=== PATIENT | female | born 1970 | race Caucasian/White ===

== ENCOUNTER → 2020-03-29 | Outpatient (CLI) | payer OTHER ==
[2020-04-02 11:07] LABS: HPV 16 Negative (Negative); HPV 18 Negative (Negative); HPV OTHER HR TYPES Negative (Negative)
== END | disposition home or self-care (01) ==
LOC: LAB SHORT 10:00 → LAB 10:00
PROVIDERS: Obstetrics & Gynecology
DX: Z01.419 Encounter for gynecological examination (general) (routine) without abnormal findings (principal)
CPT/HCPCS: 87624; G0123

== ENCOUNTER → 2021-08-06 | Outpatient (CLI) | payer OTHER ==
[2021-08-08 13:08] LABS: HPV 16 Negative (Negative); HPV 18 Negative (Negative); HPV OTHER HR TYPES Positive (Negative)
== END | disposition home or self-care (01) ==
LOC: LAB 13:30 → LAB SHORT 13:30
PROVIDERS: Obstetrics & Gynecology
DX: Z01.419 Encounter for gynecological examination (general) (routine) without abnormal findings (principal)
CPT/HCPCS: 87624; G0123

== ENCOUNTER 2024-09-10 19:07 | Emergency (ER) | payer OTHER ==
[~2024-09-10] VITALS: Ht 165.1 cm; Wt 69.8 kg
[~2024-09-10 19:07] MED LIST: ALBU90OI INH; ASPI81CH PO; CRYSELLE-28 TA1 EACH PO; EUTHYROX25 MC1 PO; Nolvadex20 MG PO; OXYC5 PO; SYMBICORT 160-4.6 GM INH
[2024-09-10] MEDS ORDERED: Ketorolac Tromethamine 15mg Vial IV ONE (19:25)
[2024-09-10] MEDS ORDERED: NS 1,000 ML IV SCH (19:25)
[2024-09-10] MEDS ORDERED: Ondansetron HCl 2 MG / ML 2ML Vial IV ONE (19:25)
[2024-09-10 20:09] LABS: BASOPHILS ABSOLUTE AUTO 0.05 K/mm3 (0.00-0.23); BASOPHILS PERCENT AUTO 1 % (0-2); EOSINOPHILS ABSOLUTE AUTO 0.09 K/mm3 (0.00-0.68); EOSINOPHILS PERCENT AUTO 1 % (0-6); Hematocrit 44.9 % (33.0-51.0); Hemoglobin 15.4 g/dL (11.5-16.0); IMMATURE GRAN ABSOLUTE AUTO 0.03 K/mm3 (0.00-0.10); IMMATURE GRAN PERCENT AUTO 0 % (0-1); LYMPHOCYTES ABSOLUTE AUTO 3.10 K/mm3 (0.84-5.20); LYMPHOCYTES PERCENT AUTO 36 % (21-46); MONOCYTES ABSOLUTE AUTO 0.60 K/mm3 (0.16-1.47); MONOCYTES PERCENT AUTO 7 % (4-13); Mean Corpuscular HGB Conc 34.3 g/dL (31.5-36.5); Mean Corpuscular Volume 89 fL (80-100); NEUTROPHILS ABSOLUTE AUTO 4.73 K/mm3 (1.96-9.15); NEUTROPHILS PERCENT AUTO 55 % (41-73); NRBC ABSOLUTE 0.00 K/mm3 (0.00-0.02); NRBC Auto 0.0 /100 WBC (0.0-0.2); RDW Coefficient Variation 12.6 % (11.7-14.2); RDW Standard Deviation 41.0 fL (35.1-46.3)
[2024-09-10 20:10] LABS: Platelet Count 283 K/mm3 (150-400)
[2024-09-10 20:12] LABS: Alanine Aminotransfer (ALT/SGP 50.0 U/L (12-78); Albumin, Blood 4.0 g/dL (3.4-5.0); Albumin/Globulin Ratio 1.1 (0.8-1.8); Anion Gap 12.0 mmol/L (3-11); Aspartate Aminotrans (AST/SGOT 39.0 U/L (12-37); Bilirubin, Total 0.7 mg/dL (0.1-1.0); Blood Urea Nitrogen 13.0 mg/dL (8-24); CO2, Blood 22.0 mmol/L (21-32); Calcium, Blood 9.9 mg/dL (8.5-10.1); Chloride, Blood 107.0 mmol/L (98-108); Creatinine, Blood 0.78 mg/dL (0.40-1.00); Globulin, Blood 3.7 g/dL (2.2-4.0); Glucose, Blood 106.0 mg/dL (70-99); Potassium, Blood 3.8 mmol/L (3.5-5.5); Sodium, Blood 137.0 mmol/L (136-145); Total Protein, Blood 7.7 g/dL (6.4-8.2)
[2024-09-10] MEDS ORDERED: HYDROmorphone HCl/Pf 1MG SYR IV ONE (20:15)
[2024-09-10 22:41] LABS: Source, Urine Clean Catch
[2024-09-10 22:44] LABS: Bilirubin, Urine Neg (Neg); Glucose Qualitative, Urine Neg (Neg); Ketones, Urine 2+ (Neg); Leukocyte Esterase, Urine 1+ (Neg); Protein, Urine 1+ (Neg); Specific Gravity, Urine 1.005 (1.003-1.022); Urobilinogen, Urine NORM (Normal)
[2024-09-10 22:49] LABS: Color, Urine Yellow (P-Yellow)
[2024-09-10 22:54] LABS: White Blood Cells, Urine 0-2 /hpf (0-5)
[2024-09-10] MEDS ORDERED: TAMS.4ER PO (23:39)
[2024-09-10] MEDS ORDERED: HYDR1TAB94 PO (23:39)
[2024-09-10] MEDS ORDERED: ONDA4ODT MM (23:39)
[2024-09-10] MEDS ORDERED: RX Prepack 6 Tabs Oxycodone 5mg UD ONE (23:40)
[2024-09-11] VITALS: BP 148/76
[2024-09-11] MEDS ORDERED: HYDR1TAB94 PO (02:06)
[2024-09-11] MEDS ORDERED: ONDA4ODT MM (02:06)
[2024-09-11] MEDS ORDERED: TAMS.4ER PO (02:06)
== END 2024-09-11 00:05 | disposition home or self-care (01) ==
LOC: ER 19:07
PROVIDERS: Student in an Organized Health Care Education/Training Program
DX: N13.2 Hydronephrosis with renal and ureteral calculous obstruction (principal); J45.909 Unspecified asthma, uncomplicated; E03.9 Hypothyroidism, unspecified; Z79.82 Long term (current) use of aspirin; Z79.51 Long term (current) use of inhaled steroids; Z79.899 Other long term (current) drug therapy; Z88.1 Allergy status to other antibiotic agents; Z88.8 Allergy status to other drugs, medicaments and biological substances
CPT/HCPCS: 74177; 80053; 81001; 81025; 85025; 93005; 93010; 96361; 96374-59; 96375; 99284-25; A9270; J1171; J1885; J2405; J7030; Q9967

== ENCOUNTER → 2024-11-09 | Outpatient (CLI) | payer OTHER ==
[~2024-11-09] MED LIST changes: +HYDR1TAB94 PO; +ONDA4ODT MM; +TAMS.4ER PO
== END ==
LOC: LAB 10:46 → LAB SHORT 10:46
PROVIDERS: Obstetrics & Gynecology
DX: Z01.419 Encounter for gynecological examination (general) (routine) without abnormal findings (principal)
CPT/HCPCS: 87624; G0145

== ENCOUNTER 2025-02-06 09:12 | Emergency (ER) | payer OTHER ==
[~2025-02-06] VITALS: Ht 165.1 cm; Wt 66.2 kg
[2025-02-06 09:41] VITALS: BP 140/82
[2025-02-06] MEDS ORDERED: NS 1,000 ML IV SCH (09:50)
[2025-02-06 10:06] LABS: BASOPHILS ABSOLUTE AUTO 0.04 K/mm3 (0.00-0.23); BASOPHILS PERCENT AUTO 0 % (0-2); EOSINOPHILS ABSOLUTE AUTO 0.04 K/mm3 (0.00-0.68); EOSINOPHILS PERCENT AUTO 0 % (0-6); Hematocrit 40.9 % (33.0-51.0); Hemoglobin 13.8 g/dL (11.5-16.0); IMMATURE GRAN ABSOLUTE AUTO 0.03 K/mm3 (0.00-0.10); IMMATURE GRAN PERCENT AUTO 0 % (0-1); LYMPHOCYTES ABSOLUTE AUTO 1.72 K/mm3 (0.84-5.20); LYMPHOCYTES PERCENT AUTO 16 % (21-46); MONOCYTES ABSOLUTE AUTO 0.65 K/mm3 (0.16-1.47); MONOCYTES PERCENT AUTO 6 % (4-13); Mean Corpuscular HGB Conc 33.7 g/dL (31.5-36.5); Mean Corpuscular Volume 89 fL (80-100); NEUTROPHILS ABSOLUTE AUTO 8.20 K/mm3 (1.96-9.15); NEUTROPHILS PERCENT AUTO 77 % (41-73); NRBC ABSOLUTE 0.00 K/mm3 (0.00-0.02); NRBC Auto 0.0 /100 WBC (0.0-0.2); Platelet Count 340 K/mm3 (150-400); RDW Coefficient Variation 13.1 % (11.7-14.2); RDW Standard Deviation 43.0 fL (35.1-46.3)
[2025-02-06] MEDS ORDERED: Cymbalta20 MG PO (10:25)
[2025-02-06] MEDS ORDERED: AMOX-CLAV 875-1 EAC1 PO (10:26)
[2025-02-06] MEDS ORDERED: GABA300 PO (10:26)
[2025-02-06] MEDS ORDERED: MELO7.5 PO (10:26)
[2025-02-06] MEDS ORDERED: HYDR1TAB94 (10:26)
[2025-02-06 10:29] LABS: Alanine Aminotransfer (ALT/SGP 66.0 U/L (12-78); Albumin, Blood 3.4 g/dL (3.4-5.0); Albumin/Globulin Ratio 0.8 (0.8-1.8); Anion Gap 8.0 mmol/L (3-11); Aspartate Aminotrans (AST/SGOT 33.0 U/L (12-37); Bilirubin, Total 0.4 mg/dL (0.1-1.0); Blood Urea Nitrogen 16.0 mg/dL (8-24); CO2, Blood 28.0 mmol/L (21-32); Calcium, Blood 9.3 mg/dL (8.5-10.1); Chloride, Blood 108.0 mmol/L (98-108); Creatinine, Blood 0.67 mg/dL (0.40-1.00); Globulin, Blood 4.1 g/dL (2.2-4.0); Glucose, Blood 87.0 mg/dL (70-99); Potassium, Blood 3.9 mmol/L (3.5-5.5); Sodium, Blood 140.0 mmol/L (136-145); Total Protein, Blood 7.5 g/dL (6.4-8.2)
[2025-02-06] MEDS ORDERED: OXYC5 PO (12:01)
== END 2025-02-06 12:11 | disposition home or self-care (01) ==
LOC: ER 09:12
PROVIDERS: Emergency Medicine
DX: K57.32 Diverticulitis of large intestine without perforation or abscess without bleeding (principal)
CPT/HCPCS: 74177; 80053; 83690; 85025; 96360-59; 99284-25; J7030; Q9967